=== PATIENT | female | born 1985 | race Caucasian/White ===

== ENCOUNTER 2023-12-23 08:39 | Emergency (ER) | payer OTHER, SELFPAY ==
[2023-12-23 08:44] VITALS: BP 146/102
[2023-12-23] MEDS: DECADRON 10 MG IV (11:16)
[2023-12-23] MEDS: TORADOL 30 MG IV (11:16)
[2023-12-23] MEDS: AUGMENTIN 875 MG/125 MG 1 TABLET PO (11:16)
[2023-12-23] MEDS: NSS 1000 IV (11:16)
[2023-12-23 11:32] LABS: % Basophils 0.8 % (0-2); % Eosinophils 4.2 % (0-6); % Immature Granulocytes 0.3 % (0-0.5); % Monocytes 6.1 % (1.7-9.3); % Neutrophils 74.6 % (42.2-75.2); Absolute Basophils 0.1 10^3/uL (0-0.2); Absolute Eosinophils 0.6 10^3/uL (0-0.7); Absolute Lymphocytes 1.9 10^3/uL (1.2-3.4); Absolute Monocytes 0.8 10^3/uL (0.1-0.6); Absolute Neutrophils 9.9 10^3/uL (1.4-6.5); Hematocrit 41.4 % (37.0-47.0); Hemoglobin 13.3 g/dL (12.0-16.0); Mean Corp Hgb Conc. 32.1 g/dL (33.0-37.0); Mean Corpuscular Hgb 28.1 pg (27.0-31.0); Mean Corpuscular Volume 87.5 fL (81.0-99.0); Mean Platelet Volume 9.5 fL (7.4-10.4); Nucleated Red Blood Cells % 0 %; Platelet Count 273 10^3/uL (130-400); Red Blood Cell Count 4.73 10^6/uL (4.20-5.40); Red Cell Dist. Width 12.9 % (11.5-14.5); White Blood Cell Count 13.3 10^3/uL (4.8-10.8)
[2023-12-23 11:41] LABS: HCG, Serum Qualitative Screen Negative
[2023-12-23 11:45] LABS: ALT (SGPT) 48 U/L (0-35); AST (SGOT) 27 U/L (14-36); Albumin 4.6 g/dl (3.5-5.0); Alkaline Phosphatase 112 U/L (38-126); Blood Urea Nitrogen 9 mg/dl (7-17); Calcium 9.6 mg/dl (8.4-10.2); Carbon Dioxide 27 mmol/L (22-30); Chloride 101 mmol/L (98-107); Glucose 92 mg/dl (70-99); Potassium 3.9 mmol/L (3.5-5.1); Sodium 139 mmol/L (135-145); Total Bilirubin 0.5 mg/dl (0.2-1.3); Total Protein 7.9 g/dl (6.3-8.2); eGFR > 60.00
[2023-12-23 12:41] VITALS: BP 112/77
--- NOTE | 2023-12-23 12:52 | ED.GENMED ---
History of Present Illness
General
Chief Complaint: Throat Problem
Source: patient
Exam Limitations: none
Time Seen by Provider: 12/23/23 10:32
Nursing documentation reviewed up to this point in time: agreed with
Travel History
Have you had any contact with someone who has COVID-19?: No
Do you have any symptoms of coronavirus? Fever > 100 degrees, chills, cough, shortness of breath, sore throat, loss of taste or smell, muscle aches, or headache?: Yes
Symptoms:: sore throat
History of Present Illness
History of Present Illness:
38-year-old female with no significant past medical history presenting to the emergency department today with concerns of throat discomfort and swelling over the past few days. She was sent in by the primary care doctor for additional assessment.
She has been able to swallow and tolerate secretions she has had a fever.
Review of Systems
Review of Systems
Allergies reviewed?: Yes
All Other Systems: ROS reviewed and negative except as documented in HPI and ROS
Phy Exam
Physical Exam
Physical Exam:
GENERAL: Alert , in no apparent distress
EYE: pupils equal and reactive
NECK: Supple, no significant adenopathy.
ENT: Inflamed uvula and bilateral tonsils which are symmetrical grossly patent airway o/p clr, mmm.
CARDIAC: Regular rate and rhythm .
LUNGS: Clear breath sounds bilaterally, no acute respiratory distress, no wheezes/rales/rhonchi
ABDOMEN: Soft, without focal tenderness, no r/g, no cvat
NEUROLOGICAL: Alert and oriented, no focal neuro deficits
SKIN: Warm and dry, skin intact.
MUSCULOSKELETAL: No edema, well perfused.
PSYCH: Normal and appropriate interaction.
Course
Orders/Labs/Results
Orders:
Orders
12/23/23 11:01
Amoxicillin 875 mg/Clav 125 mg [Augmentin 875 mg/125 mg] 1 tablet PO NOW STA
Dexamethasone Sod Phosphate [Decadron] 10 mg IV NOW STA
Ketorolac [Toradol] 30 mg IV NOW STA
12/23/23 11:03
0.9% Sodium Chloride 1000 ml [Nss] 1,000 ml IV BOLUS
Test Result ONCE
12/23/23 11:09
Beta Hcg Serum Qualitative Screen [HCG, Serum Qualitative Screen] Urgent
CBC/With Diff [Complete Blood Count/With Diff] Urgent
CMP [Comprehensive Metabolic Panel] Urgent
Influenza A+B Rapid Molecular Urgent
PAUL Source: Nasal Swab
Specimen Description:
Rapid Strep Group A Urgent
PAUL Source: Throat/Pharynx
Specimen Description:
Date Specimen was Collected: 12/23/23
Time Specimen was Collected: 11:07
Throat Culture [Throat Culture, Comprehensive] Urgent
PAUL Source: Throat/Pharynx
Specimen Description:
Date Specimen was Collected: 12/23/23
Time Specimen was Collected: 11:07
Abnormal Lab Results
12/23/23
11:09
WBC 13.3 H 10^3/uL
(4.8-10.8)
MCHC 32.1 L g/dL
(33.0-37.0)
Absolute Neuts (auto) 9.9 H 10^3/uL
(1.4-6.5)
Absolute Monos (auto) 0.8 H 10^3/uL
(0.1-0.6)
Lymphocytes % 14.0 L %
(20.5-51.1)
ALT 48 H U/L
(0-35)
12/23/23 11:09
12/23/23 11:09
Vital Signs
Initial and Last Documented VS:
Initial Vital Signs
Temp Pulse Resp BP Pulse Ox
98.2 F 98 18 146/102 99
12/23/23 08:44 12/23/23 08:44 12/23/23 08:44 12/23/23 08:44 12/23/23 08:44
Last Documented Vital Signs
Temp Pulse Resp BP Pulse Ox
98.2 F 100 16 112/77 97
12/23/23 08:44 12/23/23 12:41 12/23/23 12:41 12/23/23 12:41 12/23/23 12:41
MDM/Problems Addressed
MDM/Problems Addressed:
38-year-old female presenting to the emergency department today with concerns of throat discomfort. Patient found to have swelling to the posterior pharynx but uvula midline and grossly patent airway. No significant fever here heart rate in the
90s blood pressure normal white count slightly elevated 13.3 otherwise labs unremarkable. Patient was given steroid and pain medication with significant improvement of symptoms. Otherwise patient appears stable for outpatient was given. Patient
was group A positive was given. Patient demonstrated understanding.
*Critical Care Note
Total Time (30-74mins, 75-104mins- exclusive of procedures): Not Applicable
ED Attending Note
-
Portions of this chart may have been created with voice recognition software.� Occasional wrong word or��sound alike� substitutions may have occurred due to the inherent limitations of voice recognition software.
Discharge Plan
Departure
Patient Disposition: Home (Routine Discharge)
Date of Disposition: 12/23/23
Time of Disposition: 12:57
Patient with high blood pressure during this ER visit?: No
Condition: Good
Covid-19: Not Applicable
Discharge Problem:
Strep throat
Instructions: Strep Throat (DC)
Prescriptions:
New
amoxicillin-pot clavulanate 875-125 mg tablet
1 tab PO BID 7 Days Qty: 14 0RF
prednisone 20 mg tablet
40 mg PO DAILY 4 Days Qty: 8 0RF
Referrals:
Soo Morley MD [Family Provider] -
Activity Restrictions/Additional Instructions:
You came to the emergency department today with concerns of strep throat. No signs of complication. Please take the steroid 40 mg once daily for the next 4 days as well as Augmentin twice daily for the next 7 days. You can also take Motrin and
Tylenol to help with pain. Please stay hydrated. Return to the emergency department for any worsening, new or concerning symptoms.
Interventions
Interventions:
*Risk Screen - Suicide Last Done: 12/23/23 10:48
*General Assessment Last Done: 12/23/23 10:48
*Neglect/Abuse Screening Last Done: 12/23/23 10:48
ED- Fall Risk Assessment Last Done: 12/23/23 10:48
*ED COVID-19 Vaccine History Last Done: 12/23/23 10:48
ED-EENT Assessment Last Done: 12/23/23 10:48
ED- Pulmonary Assessment Last Done: 12/23/23 10:48
Discharge Date and Time
Print Language: LAO
== END 2023-12-23 13:13 | disposition home or self-care (01) ==
LOC: EMR 08:39
PROVIDERS: Physician Assistant; EMERGENCY PHYSICIAN Emergency Medicine; FAMILY PHYSICIAN Family Medicine
DX: J02.0 Streptococcal pharyngitis (principal)
CPT/HCPCS: 99284; 96374; 96361; 80053; 84703; 85025; 87070; 87502; 87880

== ENCOUNTER → 2024-05-24 10:15 | Outpatient (REF) | payer OTHER, SELFPAY | LOC: HWWDC 10:15 | PROVIDERS: ATTENDING PHYSICIAN Advanced Practice Midwife; FAMILY PHYSICIAN Family Medicine | DX: Z12.31 Encounter for screening mammogram for malignant neoplasm of breast (principal) | CPT/HCPCS: 77063; 77067 ==